=== PATIENT | female | born 2000 | race Two or more races ===

== ENCOUNTER 2023-04-19 00:36 | Emergency (ER) | payer OTHER ==
[~2023-04-19] VITALS: Ht 165.1 cm; Wt 60.1 kg
[2023-04-19 00:58] VITALS: BP 130/94; PULSE 59; RESP 16; TEMP 98.1; O2SAT 99
[2023-04-19] MEDS ORDERED: TETRACAINE HCL 0.5% OPTH(EYE) SOLN 4ML EACHEYE ONE (02:45)
[2023-04-19] MEDS ORDERED: CIPR0.3S4 OP (03:06)
== END 2023-04-19 04:52 | disposition home or self-care (01) ==
LOC: ER 00:36
DX: S05.8X1A Other injuries of right eye and orbit, initial encounter (principal); X58.XXXA Exposure to other specified factors, initial encounter; Y93.89 Activity, other specified; Y92.89 Other specified places as the place of occurrence of the external cause; Y99.8 Other external cause status
CPT/HCPCS: 99283; J7030